=== PATIENT | male | born 1940 | race Hispanic/Latino ===

== ENCOUNTER 2016-05-24 09:07 | Emergency (ER) | payer OTHER ==
[~2016-05-24] VITALS: Ht 167.6 cm; Wt 72.6 kg
[~2016-05-24 09:07] MED LIST: MEDROL DOSEPAK1 PAC PO
--- NOTE | 2016-05-24 09:20 | ED SYNCOPE COMPLAINT ---
History of Present Illness General Chief Complaint: Syncope and Near-Syncope Stated Complaint: BIBA NEAR SYNCOPE Source: patient Exam Limitations: no limitations Vital Signs & Intake/Output Vital Signs & Intake/Output Vital Signs Date Time Temp Pulse Resp B/P Pulse O2 O2 Flow FiO2 Ox Delivery Rate 05/24 1321 97.2 64 18 132/70 98 Room Air 05/24 1135 98.2 68 18 149/75 99 Room Air 05/24 0917 71 144/74 05/24 0916 99 Room Air 05/24 0912 96.5 66 18 147/87 99 Room Air Allergies Coded Allergies: NO KNOWN ALLERGIES (05/24/16) Reconcile Medications Amlodipine (Norvasc) 2.5 MG TABLET 1 TAB PO DAILY HEART (Reported) Atorvastatin Calcium 10 MG TABLET 1 TAB PO DAILY CHOLESTEROL (Reported) Finasteride 5 MG TABLET 1 TAB PO DAILY PROSTATE (Reported) Ubidecarenone (Co Q-10) 100 MG CAPSULE 1 CAP PO DAILY SUPPLEMENT (Reported) Triage Note: 76 Y/O MALE BIBA FROM HOME FOR EVAL S/P NEAR SYNCOPLE EPISODE. PT ARRIVES ALERT AND ORIENTED X 4, SPEAKING CLEARLY WITH NO DISTRESS OR DEFICITS. PT STATES HE WAS IN BED AND BEGAN TO HAVE PAIN BEHIND L KNEE; GOT OUT OF BED AND BEGAN TO FEEL "DIZZY AND LIGHT HEADED. I GOT REALLY SWEATY". STATES SYMPTOMS LASTED APPROX 15 MIN. DENIES C/P. DENIES SOB DURING INCIDENT. AT PRESENT, PT STATES "I FEEL BETTER. IT SEEMS NORMAL". ONLY C/O PAIN BEHIND L KNEE. EKG IN PROGRESS PA AT THE BEDSIDE Triage Nurses Notes Reviewed? yes HPI: This patient is a 76-year-old male who presented to the emergency department today brought in by ambulance for evaluation of near syncope just prior to arrival. The patient reported that he was laying in bed when he started to feel dizzy and started sweating. He reported he felt as though he was going to pass out. The patient reported that when he tried to stand up to get out of bed, he felt pain in his left leg which she is unable to describe. He reported, "it doesn't feel like a joint it just feels like, I don't know." He is unable to quantify the pain on the pain scale. He denied any falls or trauma to the area. He reported that the pain has been constant since its onset and is nonradiating localized to the calf and back of the knee. The patient denied any swelling or redness of his leg. He denied any numbness or tingling in his leg. The patient denied any precipitating factors such as nausea. He denied any vomiting, abdominal pain, chest pain, difficulty breathing, visual changes, headaches, back pain, or any other associated symptoms. (ANNA STRICKLAND PA-C) Past History Travel History Traveled to [place] past 21 day No Medical History Any Pertinent Medical History? see below for history Neurological: NONE EENT: NONE Cardiovascular: hypertension, hyperlipidemia Respiratory: NONE Gastrointestinal: NONE Hepatic: NONE Renal: NONE Musculoskeletal: NONE Psychiatric: NONE Endocrine: NONE Blood Disorders: NONE Cancer(s): NONE SALES PROFESSIONAL/Reproductive: NONE Surgical History Surgical History: non-contributory Psychosocial History Who do you live with Spouse Services at Home None What is your primary language Sami Tobacco Use: Quit >30 days ago Family History Hx Contributory? No (ANNA STRICKLAND PA-C) Review of Systems Review of Systems Constitutional: Reports: see HPI. EENTM: Reports: no symptoms. Respiratory: Reports: no symptoms. Cardiovascular: Reports: no symptoms. GI: Reports: no symptoms. Genitourinary: Reports: no symptoms. Musculoskeletal: Reports: see HPI. Skin: Reports: no symptoms. Neurological/Psychological: Reports: see HPI. All Other Systems: Reviewed and Negative (ANNA STRICKLAND PA-C) Physical Exam Physical Exam Cranial Nerves: normal hearing, normal speech, PERRL Comments: Well-developed well-nourished person in no acute distress HEENT: Normal EENT exam, head normocephalic/atraumatic, moist mucous membranes PERRLA bilaterally. EOMI bilaterally with no nystagmus Neck: Supple full range of motion Back: Normal inspection Cardiovascular: Regular rate and rhythm with no murmurs, rubs or gallops. No carotid bruits appreciated. No JVD Respiratory: No respiratory distress. Breath sounds clear to auscultation bilaterally Abdomen: Soft, nontender and nondistended. No organomegaly appreciated. No rebound or guarding Extremity: No edema, no calf tenderness to palpation, normal and equal pulses. Full range of motion of all joint spaces. No signs of trauma. Neuro: Alert oriented x3, cranial nerves II through XII grossly intact. No aphasia. No facial droop. No unilateral weakness Skin: No appreciable rash on exposed skin, skin is warm and dry. Psych: Mood and affect is normal Core Measures ACS in differential dx? Yes CVA/TIA Diagnosis: No Severe Sepsis Present: No Septic Shock Present: No (MARCO A VALDES,ANNA) Progress Differential Diagnosis: AMI, aortic dissection, aortic valve, drug induced syncope, hyperventilation, orthostatic syncope, other valvular disease, pericardial tamponade, pulmonary embolus, seizure, sick sinus syndrome, subarachnoid hem., TIA/CVA, vasodepressor syncope Plan of Care: Orders Procedure Date/time Status D-DIMER 05/24 919 Complete MISTAKE 05/24 913 Active TROPONIN LEVEL 05/24 913 Complete COMPREHENSIVE METABOLIC PANEL 05/24 913 Complete CBC WITHOUT DIFFERENTIAL 05/24 913 Complete EKG 05/24 908 Active Laboratory Tests 05/24/16930: Anion Gap 7, Estimated GFR > 60, BUN/Creatinine Ratio 18.0, Glucose 101 H, Calcium 9.2, Total Bilirubin 0.8, AST 28, ALT 40, Alkaline Phosphatase 82, Troponin I < 0.01, Total Protein 6.8, Albumin 3.9, Globulin 2.9, Albumin/ Globulin Ratio 1.3, D-Dimer 546 H, CBC w Diff NO MAN DIFF REQ, RBC 4.47 L, MCV 90.7, MCH 30.2, RDW 14.3, MPV 8.0, Gran % 58.5, Lymphocytes % 29.1, Monocytes % 8.4, Eosinophils % 3.3, Basophils % 0.7, Absolute Granulocytes 4.2, Absolute Lymphocytes 2.1, Absolute Monocytes 0.6, Absolute Eosinophils 0.2, Absolute Basophils 0.1, PUBS MCHC 33.3 Diagnostic Imaging: Viewed by Me: CT Scan, Ultrasound. Discussed w/RAD: CT Scan, Ultrasound. Radiology Impression: PATIENT: DEEPAK DUMONT PRESENT AGE: 76 PATIENT ACCOUNT NO: [id number] : 41 LOCATION: [facility] ORDERING PHYSICIAN: ANNA STRICKLAND PA-C SERVICE DATE: 05/24/16 EXAM TYPE: US - US-UNILATERAL VENOUS DOPPLER EXAMINATION: US TRIPLEX LOWER EXTREMITY, LEFT CLINICAL INFORMATION: Left leg pain. COMPARISON: None available TECHNIQUE: Color-flow triplex imaging with spectral analysis and compression Doppler were performed on the left lower extremity. FINDINGS: Respiratory variation, normal compression and augmented flow are noted throughout the lower extremity. The visualized common femoral vein, superficial femoral vein, profunda femoral vein, popliteal vein and mid calf peroneal and posterior tibial venous segments show no evidence of deep venous thrombosis. Right common femoral vein is also patent. There is no Tapia's cyst. IMPRESSION: Normal triplex scan without evidence of deep venous thrombosis involving the left lower extremity. DICTATED BY: NANCY BALLESTEROS MD DATE/TIME DICTATED:05/24/16953 WASTEWATER ANALYST LAB ANALYST:KAHN DATE/ TIME TRANSCRIBED:05/24/16953 CONFIDENTIAL, DO NOT COPY WITHOUT APPROPRIATE AUTHORIZATION. <Electronically signed in Other Vendor System> SIGNED BY: NANCY BALLESTEROS MD 05/24/16 1000, PATIENT: DEEPAK DUMONT PRESENT AGE: 76 PATIENT ACCOUNT NO: [id number] : 41 LOCATION: ER ORDERING PHYSICIAN: ANNA STRICKLAND PA-C SERVICE DATE: 05/24/16 EXAM TYPE: CAT - CT HEAD WO IV CONTRAST EXAMINATION: CT HEAD WITHOUT CONTRAST CLINICAL INFORMATION: Dizziness and confusion. COMPARISON: None. TECHNIQUE: Contiguous axial imaging was performed from the skull base to vertex without intravenous administration of contrast. DLP: Eccentric mGy-cm. FINDINGS: There is no evidence of acute intracranial hemorrhage or territorial infarction. No abnormal mass effect or midline shift is seen. Dorsey to white matter differentiation is well preserved. No extra-axial fluid collections are identified. The ventricles are normal in size. There is no abnormal attenuation within the brain parenchyma. The osseous structures and soft tissues are normal. The mastoid air cells and visualized portions of the paranasal sinuses are well aerated. IMPRESSION: No acute intracranial process seen. DICTATED BY: LETICIA GARCIA MD DATE/TIME DICTATED:05/24/161235 WASTEWATER ANALYST LAB ANALYST:RAD.KAHN DATE/TIME TRANSCRIBED:05/24/161235 CONFIDENTIAL, DO NOT COPY WITHOUT APPROPRIATE AUTHORIZATION. <Electronically signed in Other Vendor System> SIGNED BY: LETICIA GARCIA MD 05/24/16 1241, PATIENT: DEEPAK DUMONT PRESENT AGE: 76 PATIENT ACCOUNT NO: [id number] : 41 LOCATION: ER ORDERING PHYSICIAN: ANNA STRICKLAND PA-C SERVICE DATE: 05/24/16 EXAM TYPE: CAT - CTA CHEST-PULMONARY EMBOLISM EXAMINATION: CT ANGIOGRAM OF THE CHEST WITH AND WITHOUT CONTRAST (CT PULMONARY ANGIOGRAM FOR PE) CLINICAL INFORMATION: Dizziness with near syncope. COMPARISON: No pertinent prior studies are available for comparison. TECHNIQUE: Prior to contrast administration, noncontrast localization images were obtained. Subsequently, multidetector volumetric imaging was performed from the thoracic inlet to below the diaphragms following the administration of 95 mL Optiray 350 intravenous contrast. No contrast reaction reported Sagittal, coronal, and MIP oblique sagittal reformatted images were obtained on the CT workstation, uploaded to PACS, and reviewed. Total exam dose-length product 379 mGy-cm FINDINGS: QUALITY OF STUDY/ CONTRAST BOLUS: Satisfactory. PULMONARY ARTERIES: Pulmonary arteries are well opacified without evidence of filling defects to suggest pulmonary emboli. . THORACIC AORTA: No aneurysm or dissection. LUNG: There are a few scattered calcified under 10 mm nodules consistent with granulomas bilaterally. No suspicious appearing pulmonary nodules are seen. The lungs are clear. No is widely patent. PLEURA: No pleural effusion or pneumothorax. MEDIASTINUM: Normal heart size. Mild to moderate coronary atherosclerotic calcification is seen. No pericardial effusion. No hilar or mediastinal lymphadenopathy. No evidence of septal bowing or right heart strain. Esophagus is air-filled suggesting aerophagia or reflux. CHEST WALL/AXILLA: No axillary or internal mammary lymphadenopathy. OSSEOUS STRUCTURES: No aggressive appearing osseous lesions are seen. UPPER ABDOMEN: Wedge-shaped defect midpole left kidney suggesting scarring. This could also represent postsurgical change. There are scattered colonic diverticula in the transverse colon. No reflux of contrast into the hepatic veins to suggest elevated right heart pressures. IMPRESSION: No evidence of pulmonary emboli or an acute process. Largely unremarkable examination. DICTATED BY: NANCY BALLESTEROS MD DATE/TIME DICTATED:05/24/161258 WASTEWATER ANALYST LAB ANALYST:ZAY DATE/TIME TRANSCRIBED:05/24/161258 CONFIDENTIAL, DO NOT COPY WITHOUT APPROPRIATE AUTHORIZATION. <Electronically signed in Other Vendor System> SIGNED BY: NANCY BALLESTEROS MD 05/24/16 5426 Initial ED EKG: normal axis, normal intervals, 54 bpm, sinus bradycardia, left ventricular hypertrophy Comments: 05/24/2016 10:24:31 AM: I was at the patient's bedside for reevaluation. He is currently resting comfortably on the stretcher in no acute distress. Nontoxic appearing. Updated him and his who is currently at the bedside on the results of the imaging and laboratory studies. This patient does have an elevated d-dimer. Suggest getting a CTA of the chest to rule out any blood clots. They're in agreement with this plan. The patient's also reported that when this episode began this morning, he came down into the kitchen and was , "incoherent." She reported that he was very confused and did not know where he was. Will obtain a CT of the head at this time. 05/24/2016 1:18:48 PM: Discussed this patient with Dr. Puentes. CTA of the chest unremarkable. No evidence of CVA with head CT. Patient is feeling normal and better than this morning. No increase in white blood cell count. M.D. in agreement with the plan to let this patient be discharged with neurology follow- up. Discussed all results with the patient and his were in agreement with the plan. (ANNA STRICKLAND PA-C) Departure Departure Disposition: HOME OR SELF CARE Condition: Stable Clinical Impression Primary Impression: Pre-syncope Referrals: JEWELS BANEGAS,VALERY ARTEAGA MD,JONO Teague (PCP/Family) Additional Instructions: Please continue to take all previously prescribed medications as directed. Follow-up with the neurologist was information has been provided to you in this packet. Return to the emergency department for any worsening symptoms or concerns. Departure Forms: Customer Survey General Discharge Information (ANNA STRICKLAND PA-C) PA/BUSINESS QUALITY ASSURANCE ANALYST Co-Sign Statement Statement: ED Attending supervision documentation- x I saw and evaluated the patient. I have also reviewed all the pertinent lab results and diagnostic results. I agree with the findings and the plan of care as documented in the PA's/BUSINESS QUALITY ASSURANCE ANALYST's documentation. [] I have reviewed the ED Record and agree with the PA's/BUSINESS QUALITY ASSURANCE ANALYST's documentation. [] Additions or exceptions (if any) to the PAs/BUSINESS QUALITY ASSURANCE ANALYST's note and plan are summarized below: [] (MERRICK BANEGAS,GABY)
[2016-05-24 09:40] LABS: ABSOLUTE BASOPHIL COUNT 0.1 /CUMM (0.0-0.2); ABSOLUTE EOSINOPHIL COUNT 0.2 /CUMM (0.0-0.7); ABSOLUTE GRANULOCYTE CT 4.2 /CUMM (1.4-6.5); ABSOLUTE LYMPH COUNT 2.1 /CUMM (1.2-3.4); ABSOLUTE MONOCYTE COUNT 0.6 /CUMM (0.10-0.60); BASOPHIL % 0.7 % (0.0-2.0); EOSINOPHIL % 3.3 % (0-5); GRANULOCYTE % 58.5 % (42.2-75.2); HEMATOCRIT 40.5 % (42-52); MEAN CORPUSCULAR HGB 30.2 PG (27.0-31.0); MEAN CORPUSCULAR HGB CONC 33.3 G/DL (33.0-37.0); MEAN CORPUSCULAR VOLUME 90.7 FL (80.0-94.0); PLATELET COUNT 214 /CUMM (130-400); RBC DISTRIBUTION WIDTH 14.3 % (11.5-14.5); RED BLOOD CELL CT 4.47 /CUMM (4.70-6.10); WHITE BLOOD CELL COUNT 7.1 /CUMM (4.8-10.8)
[2016-05-24] MEDS ORDERED: NORVASC2.5 M1 PO (10:00)
--- NOTE | 2016-05-24 10:00 | ULTRASOUND REPORT ---
EXAMINATION: US TRIPLEX LOWER EXTREMITY, LEFT CLINICAL INFORMATION: Left leg pain. COMPARISON: None available TECHNIQUE: Color-flow triplex imaging with spectral analysis and compression Doppler were performed on the left lower extremity. FINDINGS: Respiratory variation, normal compression and augmented flow are noted throughout the lower extremity. The visualized common femoral vein, superficial femoral vein, profunda femoral vein, popliteal vein and mid calf peroneal and posterior tibial venous segments show no evidence of deep venous thrombosis. Right common femoral vein is also patent. There is no Tapia's cyst. IMPRESSION: Normal triplex scan without evidence of deep venous thrombosis involving the left lower extremity.
[2016-05-24] MEDS ORDERED: ATORVASTATIN CA10 M1 PO (10:01)
[2016-05-24] MEDS ORDERED: FINASTERIDE5 M1 PO (10:01)
[2016-05-24] MEDS ORDERED: CO Q-10100 MG PO (10:01)
--- NOTE | 2016-05-24 12:41 | CT SCAN REPORT ---
EXAMINATION: CT HEAD WITHOUT CONTRAST CLINICAL INFORMATION: Dizziness and confusion. COMPARISON: None. TECHNIQUE: Contiguous axial imaging was performed from the skull base to vertex without intravenous administration of contrast. DLP: Eccentric mGy-cm. FINDINGS: There is no evidence of acute intracranial hemorrhage or territorial infarction. No abnormal mass effect or midline shift is seen. Dorsey to white matter differentiation is well preserved. No extra-axial fluid collections are identified. The ventricles are normal in size. There is no abnormal attenuation within the brain parenchyma. The osseous structures and soft tissues are normal. The mastoid air cells and visualized portions of the paranasal sinuses are well aerated. IMPRESSION: No acute intracranial process seen.
--- NOTE | 2016-05-24 13:09 | CT SCAN REPORT ---
EXAMINATION: CT ANGIOGRAM OF THE CHEST WITH AND WITHOUT CONTRAST (CT PULMONARY ANGIOGRAM FOR PE) CLINICAL INFORMATION: Dizziness with near syncope. COMPARISON: No pertinent prior studies are available for comparison. TECHNIQUE: Prior to contrast administration, noncontrast localization images were obtained. Subsequently, multidetector volumetric imaging was performed from the thoracic inlet to below the diaphragms following the administration of 95 mL Optiray 350 intravenous contrast. No contrast reaction reported Sagittal, coronal, and MIP oblique sagittal reformatted images were obtained on the CT workstation, uploaded to PACS, and reviewed. Total exam dose-length product 379 mGy-cm FINDINGS: QUALITY OF STUDY/CONTRAST BOLUS: Satisfactory. PULMONARY ARTERIES: Pulmonary arteries are well opacified without evidence of filling defects to suggest pulmonary emboli. . THORACIC AORTA: No aneurysm or dissection. LUNG: There are a few scattered calcified under 10 mm nodules consistent with granulomas bilaterally. No suspicious appearing pulmonary nodules are seen. The lungs are clear. No is widely patent. PLEURA: No pleural effusion or pneumothorax. MEDIASTINUM: Normal heart size. Mild to moderate coronary atherosclerotic calcification is seen. No pericardial effusion. No hilar or mediastinal lymphadenopathy. No evidence of septal bowing or right heart strain. Esophagus is air-filled suggesting aerophagia or reflux. CHEST WALL/AXILLA: No axillary or internal mammary lymphadenopathy. OSSEOUS STRUCTURES: No aggressive appearing osseous lesions are seen. UPPER ABDOMEN: Wedge-shaped defect midpole left kidney suggesting scarring. This could also represent postsurgical change. There are scattered colonic diverticula in the transverse colon. No reflux of contrast into the hepatic veins to suggest elevated right heart pressures. IMPRESSION: No evidence of pulmonary emboli or an acute process. Largely unremarkable examination.
[2016-05-24 13:21] VITALS: BP 132/70
== END 2016-05-24 13:22 ==
LOC: ERH 09:07
PROVIDERS: Physician Assistant
DX: R55 Syncope and collapse (principal); M79.605 Pain in left leg; I10 Essential (primary) hypertension
CPT/HCPCS: 93005; 93010

== ENCOUNTER 2017-12-02 09:43 | Inpatient (IN) | payer OTHER ==
[~2017-12-02] VITALS: Ht 170.2 cm; Wt 66.7 kg
[~2017-12-02 09:43] MED LIST changes: +ATORVASTATIN CA10 M1 PO; +CO Q-10100 MG PO; +FINASTERIDE5 M1 PO; +NORVASC5 M1 PO
--- NOTE | 2017-12-02 10:01 | ED GENERAL ADULT ---
History of Present Illness General Chief Complaint: Syncope and Near-Syncope Stated Complaint: BIBA SYNCOPE Source: patient, EMS Exam Limitations: no limitations Vital Signs & Intake/Output Vital Signs & Intake/Output Vital Signs Date Time Temp Pulse Resp B/P B/P Pulse O2 O2 Flow FiO2 Mean Ox Delivery Rate 12/02 0953 99 Room Air 12/02 0952 97.8 57 18 116/62 98 Room Air Allergies Coded Allergies: NO KNOWN ALLERGIES (05/24/16) Reconcile Medications Amlodipine (Norvasc) 2.5 MG TABLET 1 TAB PO DAILY HEART (Reported) Atorvastatin Calcium 10 MG TABLET 1 TAB PO DAILY CHOLESTEROL (Reported) Finasteride 5 MG TABLET 1 TAB PO DAILY PROSTATE (Reported) Ubidecarenone (Co Q-10) 100 MG CAPSULE 1 CAP PO DAILY SUPPLEMENT (Reported) Triage Note: PT BIBA FROM HOME WITH SYNCOPE x2 THIS AM. EMS AND PATIENT REPORT THAT PT WAS MAKING COFFEE THIS AM WHEN HE PASSED OUT AND WAS UNBRESPONSIVE FOR APPROX 3-4 MINUTES. PT DENIES PAIN, BUT REPORTS THAT PT STRUCK BACK OF HEAD WHEN HE FELL TO THE GROUND. PT WAS BEING ESCORTED TO THE LIVING ROOM, PT WAS SYNCOPAL AGAIN, FOR APPROXIMATELY THE SAME DURATION. ON ARRIVAL, PT IS A&O, VSS. DENIES CP, SOB, OR OTHER NEGATIVE SX. #20 PLACED IN LAC B[employer] PACKER Triage Nurses Notes Reviewed? yes HPI: 77-year-old male brought by EMS for syncope. The patient was making coffee when he passed out and hit his head. According to his he was passed out for about 2 minutes. The patient reports no complaints given denies a headache. Denies being dizzy or lightheaded at this time. EMS brought EKGs with the date, the first 1 showed atrial flutter, the patient denies any history of it. The next one shows the patient being in bigeminy with PACs. The patient currently has no symptoms and telemetry is showing normal sinus rhythm. Patient denies taking blood thinners, any history of atrial flutter or atrial fibrillation. He denies any cardiac history or cardiac workup. Past History Medical History Any Pertinent Medical History? none Neurological: NONE EENT: NONE Cardiovascular: hypertension, hyperlipidemia Respiratory: NONE Gastrointestinal: NONE Hepatic: NONE Renal: NONE Musculoskeletal: NONE Psychiatric: NONE Endocrine: NONE Blood Disorders: NONE Cancer(s): NONE WELDER/INSTALLER/Reproductive: NONE Surgical History Surgical History: non-contributory Psychosocial History Who do you live with Spouse Services at Home None What is your primary language Cymro Family History Hx Contributory? No Review of Systems Review of Systems Constitutional: Denies: chills, diaphoresis, fever. EENTM: Denies: blurred vision, double vision, visual changes. Respiratory: Denies: see HPI, cough, hemoptysis. Cardiovascular: Denies: chest pain, edema, orthopena. GI: Denies: abdominal pain, bloating, constipation. Genitourinary: Denies: discharge, dysuria, frequency. Musculoskeletal: Denies: back pain, gout, joint pain. Skin: Denies: cysts, change in skin color, change in hair/nails. Neurological/Psychological: Denies: anxiety, ataxia, cognitive dysfunction. Physical Exam Physical Exam General Appearance: well developed/nourished, no apparent distress, alert, awake Head: atraumatic, normal appearance, active bleeding, evidence of injury Eyes: Bilateral: PERRL, EOMI, pale conjunctivae. Ears, Nose, Throat: normal pharynx, normal ENT inspection Neck: normal inspection, supple Respiratory: normal breath sounds, chest non-tender, no respiratory distress Cardiovascular: regular rate/rhythm, edema, gallop Gastrointestinal: normal bowel sounds, soft, non-tender Back: normal inspection, normal range of motion Neurologic/Psych: no motor/sensory deficits, awake, alert, oriented x 3 Skin: intact, normal color, warm/dry Comments: History of head, without any obvious external signs of trauma. Core Measures ACS in differential dx? Yes CVA/TIA Diagnosis: No Sepsis Present: No Sepsis Focused Exam Completed? No Progress Differential Diagnoses Syncope with EKG changes with dysrhythmia which is new for the patient. The patient will need observation or admission to the hospital. No apparent distress. Stable vital signs at this time. Plan of Care: Orders Procedure Date/time Status Heart Healthy Diet 12/02 D Active ED Holding Orders 12/02 1117 Active Admit to inpatient 12/02 1117 Active Code Status 12/02 1117 Active Saline Lock 12/02 1002 Active TROPONIN LEVEL 12/02 1002 Complete PROTHROMBIN TIME 12/02 1002 Complete MAGNESIUM 12/02 1002 Complete CBC WITHOUT DIFFERENTIAL 12/02 1002 Complete BASIC METABOLIC PANEL 12/02 1002 Complete EKG 12/02 0947 Active Laboratory Tests 12/02/17 1010: Anion Gap 9, Estimated GFR > 60, BUN/Creatinine Ratio 18.9, Glucose 88, Calcium 8.5, Magnesium 1.8, Troponin I < 0.01, PT 10.4, INR 0.95, CBC w Diff NO MAN DIFF REQ, RBC 4.07 L, MCV 90.6, MCH 30.3, MCHC 33.5, RDW 13.9, MPV 8.0, Gran % 47.5, Lymphocytes % 36.0, Monocytes % 8.7, Eosinophils % 7.0 H, Basophils % 0.8, Absolute Granulocytes 3.0, Absolute Lymphocytes 2.3, Absolute Monocytes 0.5, Absolute Eosinophils 0.4, Absolute Basophils 0 Initial ED EKG: see below Comments: EKG: Sinus, rate of 61. Normal axis. Normal intervals. No acute ST-T changes. Compared to the EKG from May 24, 2016: No significant change. 1116 imaging negative. Troponin negative. Patient doing well at this time. He will need admission for EKG changes with syncope and new onset atrial flutter demonstrated by the EMS EKG. Departure Departure Time of Disposition: 1115 Disposition: STILL A PATIENT Condition: Stable Clinical Impression Primary Impression: Syncope Secondary Impressions: Atrial flutter Referrals: Sera BANEGAS,Kishor Elam (PCP/Family) Departure Forms: Customer Survey General Discharge Information Admission Note Spoke With: Angy BANEGAS,Amicharlie Documentation of Exam: Documentation of any treatments & extenuating circumstances including Concerns Regarding Discharge (functional status, medication knowledge or non-compliance, living conditions, etc.) that warrant an admission rather than observation: EKG changes, new onset atrial flutter with documented syncope. Will need cardiology consult possible anti-correlation. Critical Care Note Critical Care Note Critical Care Time: non-applicable
[2017-12-02 10:28] LABS: ABSOLUTE BASOPHIL COUNT 0 /CUMM (0.0-0.2); ABSOLUTE EOSINOPHIL COUNT 0.4 /CUMM (0.0-0.7); ABSOLUTE LYMPH COUNT 2.3 /CUMM (1.2-3.4); ABSOLUTE MONOCYTE COUNT 0.5 /CUMM (0.10-0.60); BASOPHIL % 0.8 % (0.0-2.0); GRANULOCYTE % 47.5 % (42.2-75.2); HEMATOCRIT 36.8 % (42-52); MEAN CORPUSCULAR HGB 30.3 PG (27.0-31.0); MEAN CORPUSCULAR HGB CONC 33.5 G/DL (33.0-37.0); MEAN CORPUSCULAR VOLUME 90.6 FL (80.0-94.0); PLATELET COUNT 220 /CUMM (130-400); RBC DISTRIBUTION WIDTH 13.9 % (11.5-14.5); RED BLOOD CELL CT 4.07 /CUMM (4.70-6.10); WHITE BLOOD CELL COUNT 6.3 /CUMM (4.8-10.8)
--- NOTE | 2017-12-02 11:08 | CT SCAN REPORT ---
EXAMINATION: CT HEAD WITHOUT CONTRAST CLINICAL INFORMATION: Head injury, syncope COMPARISON: 05/24/2016 TECHNIQUE: Contiguous axial imaging was performed from the skull base to vertex without intravenous administration of contrast. DLP: 648 mGy-cm FINDINGS: There is no evidence of acute intracranial hemorrhage or territorial infarction. No abnormal mass effect or midline shift is seen. Dorsey to white matter differentiation is well preserved. No extra-axial fluid collections are identified. The ventricles are similar in configuration to the prior study. No ventriculomegaly. Again seen is mild age-appropriate periventricular and subcortical white matter hypodensity, consistent with age-appropriate chronic microvascular white matter ischemic changes. No skull fracture. Postoperative changes of both globes. Partial opacification of the ethmoid sinuses bilaterally. Partial opacification of the right frontal sinus. Bilateral maxillary sinus mucous retention cysts or polyps. Mastoid air cells are clear. IMPRESSION: No acute intracranial pathology. Worsened sinus disease.
[2017-12-02 11:28] LABS: PT 10.4 SEC (9.4-12.5)
[2017-12-02] MEDS ORDERED: HYDROCHLOROTHIA25 M1 PO (12:29)
[2017-12-02] MEDS ORDERED: VITAMIN D31000 UNI1 PO (12:30)
--- NOTE | 2017-12-02 12:33 | History & Physical ---
David BANEGAS,[place]laale 12/02/17 1230: General Information and HPI MD Statement: I have seen and personally examined DEEPAK DUMONT and documented this H&P. The patient is a 77 year old M who presented with a patient stated chief complaint of [SYNCOPE]. Source of Information: patient, family, old records Exam Limitations: no limitations History of Present Illness: This is a 77 yo male with PMH of HTN, HLD, tubular adenoma on colonoscopy who comes in for CC of witnessed syncope x2. He was making coffee this AM when he "passed out" for about 3-4 min. This was witnessed by his . She noted that he hit his head when he went down. Then he was escorted to the living room and had another similar episode of syncope for the same duration but without head strike. Patient does not remember either syncopal event very well. He remembers feeling dizzy for a moment before he fell; denies any palpitations, diaphoresis, loss of bladder or bowel control, or uncontrolled limb movements. He remembers being significantly diaphoretic AFTER the syncopal event. He does report a previous episode of syncope last year with similar presentation; he was seen in ED, no etiology found at that time. He denies any CP, SANTA,N,V,D,SOB, orthopnea, palpitations, change in bladder or bowel movement, hematuria, hematochezia or recent illnesses. His anti- hypertensive regimen is HCTZ and Amlodipine, dose and medications have not been changed recently. EKG by EMS seems to show a single episode of aflutter and one with bigemini. Pt has no hx of cardiac arrhythmia. FAM HX: Mom with stomach ca. Brother seemed to report similar episode of syncope but he says it was because of his hypertensive medication. Brother has one stent placed. No fam hx SCD. SOC HX: He quit smoking 25 yrs ago, and still uses etoh recreationally 3-4 days a week. One serving of scotch. NO IVDA. Surg Hx: Open appy as a child and abd surgery Allergies/Medications Allergies: Coded Allergies: NO KNOWN ALLERGIES (05/24/16) Home Med list Amlodipine Besylate (Norvasc) 5 MG TABLET 1 TAB PO DAILY HTN (Reported) Atorvastatin Calcium 10 MG TABLET 1 TAB PO DAILY CHOLESTEROL (Reported) Cholecalciferol (Vitamin D3) (Vitamin D3) 1,000 UNIT CAPSULE 1 CAP PO DAILY SUPPLEMENT (Reported) Finasteride 5 MG TABLET 1 TAB PO DAILY PROSTATE (Reported) Hydrochlorothiazide 25 MG TABLET 1 TAB PO DAILY BP (Reported) Ubidecarenone (Co Q-10) (Unknown Strength) CAPSULE (Unknown Dose) PO DAILY SUPPLEMENT (Reported) Compliance With Home Meds: GOOD Past History Travel History Traveled to [place] past 21 day No Medical History Neurological: NONE EENT: NONE Cardiovascular: hypertension, hyperlipidemia Respiratory: NONE Gastrointestinal: NONE Hepatic: NONE Renal: NONE Musculoskeletal: NONE Psychiatric: NONE Endocrine: NONE Blood Disorders: NONE Cancer(s): NONE AIR CONDITIONING UNIT TESTER/Reproductive: NONE Surgical History Surgical History: non-contributory Past Family/Social History Psychosocial History Services at Home: None ETOH Use: occasional use Review of Systems Review of Systems Constitutional: Reports: see HPI. Exam & Diagnostic Data Last 24 Hrs of Vital Signs/I&O Vital Signs Date Time Temp Pulse Resp B/P B/P Pulse O2 O2 Flow FiO2 Mean Ox Delivery Rate 12/02 0953 99 Room Air 12/02 0952 97.8 57 18 116/62 98 Room Air Intake & Output 12/02 1600 12/02 0800 12/02 0000 Intake Total Output Total Balance Patient 69.853 kg Weight Weight Reported by Patient Measurement Method Physical Exam General Appearance Alert, Oriented X3, Cooperative, No Acute Distress Skin No Significant Lesion HEENT Atraumatic, PERRLA, EOMI, Mucous Membr. moist/pink Neck Supple Cardiovascular Regular Rate, Normal S1, Normal S2, No Murmurs Lungs Clear to Auscultation, Normal Air Movement Abdomen Soft, No Tenderness Extremities No Edema Last 24 Hrs of Labs/Freddie: Laboratory Tests 12/02/17 1010: Anion Gap 9, Estimated GFR > 60, BUN/Creatinine Ratio 18.9, Glucose 88, Calcium 8.5, Magnesium 1.8, Troponin I < 0.01, PT 10.4, INR 0.95, CBC w Diff NO MAN DIFF REQ, RBC 4.07 L, MCV 90.6, MCH 30.3, MCHC 33.5, RDW 13.9, MPV 8.0, Gran % 47.5, Lymphocytes % 36.0, Monocytes % 8.7, Eosinophils % 7.0 H, Basophils % 0.8, Absolute Granulocytes 3.0, Absolute Lymphocytes 2.3, Absolute Monocytes 0.5, Absolute Eosinophils 0.4, Absolute Basophils 0 Assessment/Plan Assessment: ASSESSMENT:This is a 77 yo male with PMH of HTN and HLD who comes in for CC Syncope x 2. His only prodrome was some dizziness and he cannot recall much about the events. EMS EKG shows a.flutter and some bigemini; subsequent ED EKG shows NSR with some slight T-wave depression in lateral leads. Pt has no known history of conduction abnormalities but given EKG findings there is concern that his syncope is due to arrhythmia. Will admit to telemetry for further workup and monitoring. PLAN: 1. Syncope: Highest on the differential of syncope for this pt is cardiac syncope given abnormal EKG. There was no event and pt does not describe any symptoms to suggest neurogenic. Will check for orthostats. * EKG and trops x2 * Cardio consult * Continuous cardiac monitoring * holding anti-hypertensives at this time (HCTZ and Amlodipine). * Echo * orthostats * ?? Role of Anticoagulation in this patient. 2. Hyperlipidemia: * Con't statin 3. BPH: * Con't Finasteride FC Chem ppx HHD After initial admission pt was placed on surveillance monitor and he was in a.flutter but relatively asymptomatic and rate controlled. His [id number] score was 3 so we decided to start pt on Heparin drip. As Ranked By This Provider Problem List: 1. Syncope Core Measures/Misc (01/21) Acute Coronary Syndrome ACS Diagnosis: No Congestive Heart Failure Congestive Heart Failure Diagnosis No Cerebrovascular Accident CVA/TIA Diagnosis: No VTE (View Protocol) VTE Risk Factors Acute Medical Illness No Mechanical VTE Prophylaxis d/t N/A MechProphylax Ordered No VTE Pharm Prophylaxis d/t NA PharmProphylax ordered Sepsis (View protocol) Sepsis Present: No If YES complete Sepsis Event Note If YES complete Sepsis Event Note Angy BANEGAS,Amir 12/02/17 1417: Core Measures/Misc (01/21) Sepsis (View protocol) If YES complete Sepsis Event Note If YES complete Sepsis Event Note Attending MD Review Statement Attending Statement Attending MD Statement: examined this patient, discuss w/resident/PA/REGULATORY COMPLIANCE OFFICER, agreed w/resident/PA/REGULATORY COMPLIANCE OFFICER, discussed with family, reviewed EMR data (avail), discussed with nursing Attending Assessment/Plan: Mr. Dumont was seen and evaluated. H&P reviewed. Pt currently asymptomatic without CP or syncope. Symptoms likely c/w --will admit to Tele, serial cardiac enzymes, 2D ECHO and Cards consult --rest of the plan as per resident's note
--- NOTE | 2017-12-02 17:07 | Admission Certification ---
Admission Certification Certification Statement - As attending physician, I certify that at the time of - admission, based on clinical presentation, severity of - symptoms, need for further diagnostic testing and - therapeutic interventions, and risk of adverse outcomes - without in-hospital treatment, in my clinical assessment, - this patient requires an acute hospital stay for a minimum - of two nights or longer. I have also considered psychsocial - factors such as support system, advanced age, financial - issues, cognitive issues, and failed out-patient treatments, - past re-admission history, safety of patient, and lack of - compliance as applicable. Specific rationale supporting this admission is: arrythmia
--- NOTE | 2017-12-02 20:46 | Event Note ---
Event Note Event Note: 77 yo male brought in for syncope. He was found to be in paroxysmal afib/a flutter/bigeminy. His CHADS VASC score is 3. I did the stool Hemoccult which came back negative. Plan is to start Heparin gtt tonight. For further anticoagulation, we will follow cardiology recommendations.
[2017-12-03 04:31] LABS: PTT 96 SEC (25-37)
[2017-12-03 06:26] LABS: ABSOLUTE BASOPHIL COUNT 0 /CUMM (0.0-0.2); ABSOLUTE EOSINOPHIL COUNT 0.4 /CUMM (0.0-0.7); ABSOLUTE GRANULOCYTE CT 6.1 /CUMM (1.4-6.5); ABSOLUTE MONOCYTE COUNT 0.6 /CUMM (0.10-0.60); BASOPHIL % 0.4 % (0.0-2.0); EOSINOPHIL % 3.9 % (0-5); GRANULOCYTE % 66.9 % (42.2-75.2); HEMATOCRIT 39.7 % (42-52); MEAN CORPUSCULAR HGB 30.7 PG (27.0-31.0); MEAN CORPUSCULAR HGB CONC 34.5 G/DL (33.0-37.0); MEAN CORPUSCULAR VOLUME 89.1 FL (80.0-94.0); MEAN PLATELET VOLUME 8.1 FL (7.4-10.4); PLATELET COUNT 239 /CUMM (130-400); RBC DISTRIBUTION WIDTH 14.1 % (11.5-14.5); RED BLOOD CELL CT 4.45 /CUMM (4.70-6.10); WHITE BLOOD CELL COUNT 9.2 /CUMM (4.8-10.8)
--- NOTE | 2017-12-03 07:22 | PN- Housestaff ---
Doreen Gallagher 12/03/17 0722: Subjective Follow-up For: Syncope, atrial fibrillation, atrial flutter, bigeminy, hypertension Complaints: no complaints Subjective: Patient seen and examined sitting comfortably in his chair in no acute distress. No complaints/no acute events overnight. Review of Systems Constitutional: Reports: see HPI. Objective Last 24 Hrs of Vital Signs/I&O Vital Signs Date Time Temp Pulse Resp B/P B/P Pulse O2 O2 Flow FiO2 Mean Ox Delivery Rate 12/03 1302 96.9 68 18 128/65 97 12/03 0928 70 118/50 12/03 0806 98.9 12/03 0604 70 18 141/61 100 Room Air 12/02 2112 98.6 84 18 148/68 99 Room Air 12/02 1825 97.8 96 16 142/68 98 Room Air 12/02 1541 97.8 84 16 115/60 98 Room Air Intake & Output 12/03 1600 12/03 0800 12/03 0000 Intake Total 176 340 Output Total Balance 176 340 Intake, IV 176 Intake, Oral 340 Physical Exam General Appearance: Alert, Oriented X3, Cooperative, No Acute Distress Skin: No Rashes, No Breakdown, No Significant Lesion HEENT: Atraumatic, Mucous Membr. moist/pink Neck: Supple Cardiovascular: Regular Rate, Normal S1, Normal S2, No Murmurs Lungs: Clear to Auscultation, Normal Air Movement Abdomen: Soft, No Tenderness, No Hepatospenomegaly Neurological: Normal Gait, Normal Speech, Strength at 5/5 X4 Ext, Normal Tone Extremities: No Clubbing, No Cyanosis, No Edema Assessment/Plan Assessment: Mr. Shields is a 77-year-old male with past medical history of hypertension, hyperlipidemia, no other cardiac history who presented to the ED for syncope 2. He reports a prodrome of dizziness but cannot recall the syncopal events. In the ambulance his EKG showed a flutter/bigeminy. In the emergency department EKG showed normal sinus rhythm and slight T-wave depressions in lateral leads. Vitals: Stable. Afebrile. Saturating well on room air Troponins: Less than 0.01--- less than 0.01--- less than 0.01 Problems: Assessment and plan: asymptomatic and stable clinically. He is in rate controlled ventricular response Diet: Heart healthy CODE STATUS: Full code DVT prophylaxis heparin Problem List: 1. Atrial flutter 2. Syncope 3. Bigeminy 4. Atrial flutter Pain Ratin Pain Location: None Pain Goal: Remain pain free Pain Plan: Follow pain pathway Tomorrow's Labs & Rationales: cbc. sunil Martínez MD,Dorita 12/03/17 1143: Attending MD Review Statement Attending Statement Attending MD Statement: examined this patient, discuss w/resident/PA/SYSTEM DEVELOPMENT MANAGER, agreed w/resident/PA/SYSTEM DEVELOPMENT MANAGER, reviewed EMR data (avail), discussed with nursing, discussed with case mgmt, amended to note Attending Assessment/Plan: Patient seen and examined. Resting comfortably not in any acute distress. Presented with syncope. He was noted to have atrial flutter by EMS EKG was normal sinus rhythm with ST depressions on presentation to the ER. He converted into atrial flutter in the emergency room. Apparently his rhythm has been varying between A. fib, a flutter and bigeminy. He is currently rate controlled ventricular response and not on any medications for rate control. He is resting comfortably. Denies chest pain or palpitations. No shortness of breath. He has ruled out for ACS with negative cardiac enzymes. Electrolytes are within normal limits. Laboratory data reviewed. TSH within normal limits last month. Problems: 1. Paroxysmal atrial fibrillation/flutter. 2. Syncope; likely secondary to above 3. Hypertension Plan: -Follow-up echocardiogram. Continue telemetry monitoring. -Awaiting cardiology evaluation. -Currently on anticoagulant with IV heparin. Follow-up with cardiology service regarding long-term anticoagulant. -
[2017-12-03 09:28] VITALS: BP 118/50
[2017-12-03 11:16] LABS: PTT 90 SEC (25-37)
--- NOTE | 2017-12-03 13:56 | Patient Discharge Instructions ---
Discharge Instructions General Discharge Information You were seen/treated for: Syncope, irregular heart rhythms: Atrial fibrillation/atrial flutter/bigeminy Watch for these problems: Please visit your nearest emergency department if you have any of these: Chest pain, shortness of breath, heart racing fast, heart having in irregular beat, fever, chills Special Instructions: Diet Recommended Diet: Heart Healthy Activity Activity Self Limited: Yes Acute Coronary Syndrome Inclusion Criteria At DC or during hospital stay patient has or had the following: ACS DIAGNOSIS No Discharge Core Measures Meds if any: Prescribed or Continued at Discharge Meds if any: NOT Prescribed or Continued at Discharge Congestive Heart Failure Inclusion Criteria At DC or during hospital stay patient has or had the following: CHF DIAGNOSIS No Discharge Core Measures Meds if any: Prescribed or Continued at Discharge Meds if any: NOT Prescribed or Continued at Discharge Cerebrovascular accident Inclusion Criteria At DC or during hospital stay patient has or had the following: CVA/TIA Diagnosis No Discharge Core Measures Meds if any: Prescribed or Continued at Discharge Meds if any: NOT Prescribed or Continued at Discharge Venous thromboembolism Inclusion Criteria VTE Diagnosis No VTE Type NONE VTE Confirmed by (Test) NONE Discharge Core Measures - Per Current guidelines, there needs to be overlap - treatment for the first 5 days of Warfarin therapy. - If discharged on Warfarin prior to 5 days of - overlap therapy, the patient will need to be - assessed for post discharge needs including - *Post discharge parental anticoagulation - *Warfarin and/or parental anticoagulation education - *Follow up date to check INR post discharge At least 5 days overlap therapy as Inpatient No Meds if any: Prescribed or Continued at Discharge Note: Overlap Therapy is Warfarin and Anticoagulant Meds if any: NOT Prescribed or Continued at Discharge
[2017-12-03 14:10] VITALS: BP 137/64
--- NOTE | 2017-12-03 15:35 | Cons- Cardiology ---
General Information and HPI Consulting Request Date of Consult: 12/03/17 Requested By: Dorita Martínez MD Reason for Consult: syncoe, atrial fibrillation Source of Information: patient, family Exam Limitations: no limitations History of Present Illness: 77-year-old male PMH hypertension, hyperlipidemia presented after witnessed syncope 2. Patient was making coffee in his kitchen when he experienced sudden loss of consciousness. This happened a second time several minutes later. Patient denies preceding chest pain, palpitations, dyspnea, lightheadedness/ dizziness. Patient was not confused afterwards, denies tongue biting, urinary/ bowel incontinence. Patient's witnessed the event and stated that he did not exhibit any shaking movements. This happened one time several years ago in the past. Patient denies exertional chest pain, dyspnea. Has an limited exercise tolerance, denies PND/orthopnea. Patient reports a negative exercise stress test several years ago. Allergies/Medications Allergies: Coded Allergies: NO KNOWN ALLERGIES (05/24/16) Home Med List: Amlodipine Besylate (Norvasc) 5 MG TABLET 1 TAB PO DAILY HTN (Reported) Atorvastatin Calcium 10 MG TABLET 1 TAB PO DAILY CHOLESTEROL (Reported) Cholecalciferol (Vitamin D3) (Vitamin D3) 1,000 UNIT CAPSULE 1 CAP PO DAILY SUPPLEMENT (Reported) Finasteride 5 MG TABLET 1 TAB PO DAILY PROSTATE (Reported) Hydrochlorothiazide 25 MG TABLET 1 TAB PO DAILY BP (Reported) Ubidecarenone (Co Q-10) (Unknown Strength) CAPSULE (Unknown Dose) PO DAILY SUPPLEMENT (Reported) Review of Systems Review of Systems: As per HPI; otherwise a 10 point review of systems is negative Past History Travel History Traveled to [place] past 21 day No Medical History Neurological: NONE EENT: NONE Cardiovascular: hypertension, hyperlipidemia Respiratory: NONE Gastrointestinal: NONE Hepatic: NONE Renal: NONE Musculoskeletal: NONE Psychiatric: NONE Endocrine: NONE Blood Disorders: NONE Cancer(s): NONE ROLLER PRINTER/Reproductive: NONE Surgical History Surgical History: non-contributory Psychosocial History Services at Home: None Smoking Status: Former Smoker ETOH Use: occasional use Exam & Diagnostic Data Vital Signs and I&O Vital Signs Date Time Temp Pulse Resp B/P B/P Pulse O2 O2 Flow FiO2 Mean Ox Delivery Rate 12/03 1410 98.3 61 61 137/64 93 Room Air 12/03 1302 96.9 68 18 128/65 97 07/30 0928 70 118/50 12/03 0806 98.9 12/03 0604 70 18 141/61 100 Room Air 12/02 2112 98.6 84 18 148/68 99 Room Air 12/02 1825 97.8 96 16 142/68 98 Room Air 12/02 1541 97.8 84 16 115/60 98 Room Air Intake & Output 12/03 1600 12/03 0800 12/03 0000 12/02 1600 12/02 0800 12/02 0000 Intake Total 729 507 0536 Output Total Balance 092 628 6244 Intake, IV 176 Intake, Oral 340 2660 Patient 69.853 kg 69.853 kg Weight Weight Reported by Patient Reported by Patient Measurement Method Physical Exam: General: no apparent distress HEENT: NCAT, NO JVD Heart: s1s2, RRR, no MRG Lungs: CTA b/l Abd: soft, nt Ext: no peripheral edema Diagnostic Data EKG Results Personally reviewed: 1 ECG shows typical atrial flutter with variable AV block 2 ECG shows coarse atrial fibrillation with RVR and spontaneous conversion to normal sinus rhythm 3 ECG shows normal sinus rhythm, no ST/T-wave abnormalities Telemetry personally reviewed, normal sinus rhythm Other Results Head CT: No acute intracranial pathology Assessment/Plan Assessment/Plan 1. Syncope 2. Atrial fibrillation/flutter 3. Hypertension, well controlled 4. Hyperlipidemia The patient's presentation is consistent with sudden loss of consciousness due to tachyarrhythmia, atrial fibrillation/flutter. [id number] is at least 3; full dose anticoagulation is therefore indicated. The patient is currently in sinus rhythm and asymptomatic. troponin was negative. Obtain 2D echo cardiogram Check TSH Continue telemetry Continue with heparin for now, as long as echo does not show mitral stenosis, patient can be discharged on DOAC such as eliquis After echo, patient can be started on diltiazem or metoprolol Continue with statin Consult Acknowledgment - Thank you for your consult request.
--- NOTE | 2017-12-03 22:10 | ECHOCARDIOGRAM REPORT ---
DEEPAK DUMONT Age: 77 : 1940 Gender: M Exam Date: 12/03/2017 19:17 Exam Location: 1 [facility] Ht (in): 66 Wt (lb): 154 BSA: 1.81 BP: 141 / 61 Ordering Physician: Malena Hernandez MD Referring Physician: Maikel Hernandez MD Technologist: Jojo Rolon [facility] Room Number: [id number] Indications: Afib/flutter Rhythm: Technical Quality: Fair FINDINGS Left Ventricle No obvious regional wall motion abnormalities. Left ventricular wall thickness mildly increased. Left ventricular cavity size normal. Left ventricular ejection fraction is estimated at > 55 %. Right Ventricle Normal right ventricular size and function. Right Atrium Normal right atrial size. Left Atrium Mild left atrial dilatation. Mitral Valve Moderate mitral annular calcification. Trace mitral regurgitation. Aortic Valve Thickened aortic valve without stenosis. Tricuspid Valve Structurally normal tricuspid valve. Mild tricuspid regurgitation. No evidence of pulmonary hypertension. Pulmonic Valve Pulmonic valve not well visualized, grossly normal. Pericardium No pericardial effusion. Great Vessels Normal size aortic root. CONCLUSIONS No obvious regional wall motion abnormalities. Left ventricular wall thickness mildly increased. Left ventricular cavity size normal. Left ventricular ejection fraction is estimated at > 55 %. Normal right ventricular size and function. Mild left atrial dilatation. Thickened aortic valve without stenosis. No evidence of pulmonary hypertension. David Pressley M.D. (Electronically Signed) Final Date: 03 December 2017 22:05 MEASUREMENTS (Male / Female) Normal Values 2D ECHO LV Diastolic Diameter PLAX 3.5 cm 4.2 - 5.9 / 3.9 - 5.3 cm LV Systolic Diameter PLAX 1.9 cm 2.1 - 4.0 cm LV Fractional Shortening PLAX 45.7 % 25 - 46 % LV Ejection Fraction 2D Teich 78.0 % IVS Diastolic Thickness 1.3 cm LVPW Diastolic Thickness 1.2 cm LV Relative Wall Thickness 0.7 RV Internal Dim ED PLAX 3.6 cm 1.9 - 3.8 cm LVOT Diameter 1.8 cm Aortic Root Diameter 2.9 cm LA Systolic Diameter LX 3.4 cm 3.0 - 4.0 / 2.7 - 3.8 cm LA Volume 47.0 cm 18 - 58 / 22 - 52 cm Ascending Aorta Diameter 2.8 cm DOPPLER AV Peak Velocity 144.0 cm/s AV Peak Gradient 8.3 mmHg AV Mean Velocity 98.3 cm/s AV Mean Gradient 4.0 mmHg AV Velocity Time Integral 29.4 cm LVOT Peak Velocity 111.0 cm/s LVOT Peak Gradient 4.9 mmHg LVOT Mean Velocity 78.3 cm/s LVOT Mean Gradient 3.0 mmHg LVOT Velocity Time Integral 24.8 cm LVOT Stroke Volume 63.1 cm AV Area Cont Eq vti 2.1 cm AV Area Cont Eq pk 2.0 cm MV Peak Velocity 86.3 cm/s MV Peak Gradient 3.0 mmHg MV Mean Velocity 51.5 cm/s MV Mean Gradient 1.0 mmHg Mitral E Point Velocity 77.5 cm/s Mitral A Point Velocity 83.4 cm/s Mitral E to A Ratio 0.9 MV PHT Velocity 89.9 cm/s MV Deceleration [place] 407.0 cm/s MV Pressure Half Time 66.3 ms MV Area PHT 3.3 cm MV Deceleration Time 222.0 ms TR Peak Velocity 220.0 cm/s TR Peak Gradient 19.4 mmHg Right Atrial Pressure 5.0 mmHg Pulmonary Artery Systolic Pressure 24.4 mmHg Right Ventricular Systolic Pressure 24.4 mmHg PV Peak Velocity 93.7 cm/s PV Peak Gradient 3.5 mmHg PV Mean Velocity 68.9 cm/s PV Mean Gradient 2.0 mmHg PV Velocity Time Integral 21.2 cm LV E' Lateral Velocity 11.0 cm/s Mitral E to LV E' Lateral Ratio 7.0 LV E' Septal Velocity 5.6 cm/s Mitral E to LV E' Septal Ratio 13.9
[2017-12-03 23:23] VITALS: BP 120/60
[2017-12-03 23:51] LABS: PTT 101 SEC (25-37)
[2017-12-04 06:16] VITALS: BP 126/60
--- NOTE | 2017-12-04 07:31 | PN- Housestaff ---
Jong Martinez 12/04/17 0730: Subjective Follow-up For: Syncope, A. fib, a flutter Tele-Events Since Last Visit: Sinus bradycardia 54-59, converted to a flutter and back to sinus bradycardia several times overnight Subjective: Patient was seen and examined lying comfortably in bed. Patient was in no acute distress. Patient had no complaints overnight. Patient denies dizziness, chest pain, shortness of breath, diaphoresis, nausea, vomiting, trouble sleeping. Telemetry recordings showed patient converted to A-flutter and back to sinus bradycardia (54-59) several times overnight. Review of Systems Constitutional: Reports: see HPI. Objective Last 24 Hrs of Vital Signs/I&O Vital Signs Date Time Temp Pulse Resp B/P B/P Pulse O2 O2 Flow FiO2 Mean Ox Delivery Rate 12/04 09 110 122/62 12/04 0800 94 Room Air 12/04 0616 98.3 59 18 126/60 94 Room Air 12/03 2323 98.5 65 18 120/60 96 12/03 1410 98.3 61 61 137/64 93 Room Air 12/03 1302 96.9 68 18 128/65 97 Intake & Output 12/04 1600 12/04 0800 12/04 0000 Intake Total 234.4 144.8 Output Total Balance 234.4 144.8 Intake, IV 134.4 44.8 Intake, Oral 100 100 Physical Exam General Appearance: Alert, Oriented X3, Cooperative, No Acute Distress Skin Temp/Moisture Exam: Warm/Dry Sepsis Skin Exam (color): Normal for Ethnicity HEENT: Atraumatic, PERRLA, EOMI Neck: Supple Cardiovascular: Normal S1, Normal S2 Lungs: Clear to Auscultation Abdomen: Soft, No Tenderness Neurological: Normal Speech Extremities: No Edema, Normal Pulses Current Medications: Current Medications Sig/Carl Start time Last Medication Dose Route Stop Time Status Admin Acetaminophen 650 MG Q6P PRN 12/02 1400 AC PO Apixaban 5 MG BID 12/04 09 AC 12/04 PO 911 Atorvastatin Calcium 10 MG DAILY 12/03 09 AC 12/04 PO 09 Finasteride 5 MG DAILY 12/03 09 AC 12/04 PO 911 Heparin Sodium 25,000 UNIT Q24H 12/02 1930 DC 12/03 (Porcine) IV 2031 Sodium Chloride 500 ML Metoprolol Tartrate 25 MG .STK-MED ONE 12/04 0907 DC PO 12/04 0908 Metoprolol Tartrate 12.5 MG BID 12/04 0900 AC 12/04 PO 0912 Oxycodone/ 1 TAB Q6P PRN 12/02 1400 AC Acetaminophen PO Patient Medication 1 ED ONE ONE 12/04 1630 DC Teaching ED 12/04 1631 Last 24 Hrs of Lab/Freddie Results Last 24 Hrs of Labs/Mics: Laboratory Tests 12/04/17 0630: APTT 60 H 12/03/17 2225: APTT 101 *H Assessment/Plan Assessment: Mr. Shields is a 77-year-old male with past medical history of hypertension, hyperlipidemia, no other cardiac history who presented to the ED for syncope 2. 1. Paroxysmal A. fib - Start 12.5 mg Metoprolol for rate control - Continue Eliquis for stroke prevention given CHADS2 Vasc score of 3 as per cardiology 2. Chronic Conditions (BPH, HLD, HTN) - Continue Home Meds Heart healthy diet Full code DVT prophylaxis Problem List: 1. Atrial flutter 2. A-fib Pain Ratin Pain Location: N/A Pain Goal: Remain pain free Pain Plan: Pain pathway Tomorrow's Labs & Rationales: N/A Mauricio BANEGAS,Dorita 12/04/17 1151: Attending MD Review Statement Attending Statement Attending MD Statement: examined this patient, discuss w/resident/PA/POLE FRAMER MACHINE, agreed w/resident/PA/POLE FRAMER MACHINE, reviewed EMR data (avail), discussed with nursing, discussed with case mgmt, amended to note Attending Assessment/Plan: Patient seen and examined. Resting comfortably and not in any acute distress. No issues overnight. He remains in atrial fibrillation. For the most part he is with controlled ventricular response will however had rapid ventricular response early on today. In view of this he was started on metoprolol 12.5 mg orally. Heart rate did improve. He did have another episode of tachycardia when ambulated to the bathroom. Heart rate however is currently in the low 50s. In view of this would recommend maintaining the current dose of metoprolol and monitor patient overnight to ensure that he does not develop any episodes of severe bradycardia that will warrant placement of a permanent pacemaker. Anticoagulant therapy has been switched to Eliquis.
[2017-12-04 08:14] LABS: PTT 60 SEC (25-37)
[2017-12-04] MEDS ORDERED: METOPROLOL TART25 M1 PO (10:25)
[2017-12-04] MEDS ORDERED: ELIQUIS5 M1 PO (10:27)
--- NOTE | 2017-12-04 11:12 | PN- Cardiology ---
Subjective Subjective: Patient feels well. He denies chest pain shortness of breath or palpitations. He is anxious to be discharged. Review of Systems: Eyes no blurred or double vision Ears no deafness or ringing Nose and throat no recurrent sinusitis Lungs per history of present illness Heart per history of present illness Abdomen no nausea vomiting Musculoskeletal occasional muscle and joint pains Psych no anxiety or depression Neuro without recurrent headache or seizures Endocrine no heat or cold intolerance Objective Vital Signs and I&Os Vital Signs Date Time Temp Pulse Resp B/P B/P Pulse O2 O2 Flow FiO2 Mean Ox Delivery Rate 12/04 0912 110 122/62 12/04 0800 94 Room Air 12/04 0616 98.3 59 18 126/60 94 Room Air 12/03 2323 98.5 65 18 120/60 96 12/03 1410 98.3 61 61 137/64 93 Room Air 12/03 1302 96.9 68 18 128/65 97 Intake & Output 12/04 1600 12/04 0800 12/04 0000 12/03 1600 12/03 0800 12/03 0000 Intake Total 234.4 144.8 176 340 Output Total Balance 234.4 144.8 176 340 Intake, IV 134.4 44.8 176 Intake, Oral 100 100 340 Patient 154 lb Weight Weight Reported by Patient Measurement Method Physical Exam: Patient is a well-developed well-nourished male appearing in no acute distress HEENT is unremarkable Neck is supple there is no JVD Lungs are clear Heart irregular rhythm S1 and S2 are normal no murmurs gallops or rubs Abdomen bowel sounds positive Extremities without edema Neuro without focal deficits Psych alert and oriented Lymph no adenopathy Current Medications: Current Medications Sig/Carl Start time Last Medication Dose Route Stop Time Status Admin Acetaminophen 650 MG Q6P PRN 12/02 1400 AC PO Apixaban 5 MG BID 12/04 899 AC 12/04 PO 09 Atorvastatin Calcium 10 MG DAILY 12/03 09 AC 12/04 PO 09 Finasteride 5 MG DAILY 12/03 899 AC 12/04 PO 09 Heparin Sodium 25,000 UNIT Q24H 12/02 1930 DC 12/03 (Porcine) IV 2031 Sodium Chloride 500 ML Magnesium Oxide 400 MG ONE ONE 12/03 1515 DC 12/03 PO 12/03 1516 1633 Metoprolol Tartrate 12.5 MG BID 12/04 899 AC 12/04 PO 0912 Oxycodone/ 1 TAB Q6P PRN 12/02 1400 AC Acetaminophen PO Results Last 48 Hrs of Labs/Mics: Laboratory Tests 12/04/17 0630: APTT 60 H 12/03/17 2225: APTT 101 *H 12/03/17 1050: APTT 90 H 12/03/17 0611: Anion Gap 7, Estimated GFR > 60, BUN/Creatinine Ratio 25.7 H, Magnesium 1.9, TSH 0.812, Free T4 1.22, CBC w Diff NO MAN DIFF REQ, RBC 4.45 L, MCV 89.1, MCH 30.7, MCHC 34.5, RDW 14.1, MPV 8.1, Gran % 66.9, Lymphocytes % 22.3, Monocytes % 6.5, Eosinophils % 3.9, Basophils % 0.4, Absolute Granulocytes 6.1, Absolute Lymphocytes 2.0, Absolute Monocytes 0.6, Absolute Eosinophils 0.4, Absolute Basophils 0 12/03/17 0344: APTT 96 H 12/02/17 2112: Troponin I < 0.01 12/02/17 1605: Troponin I < 0.01 Telemetry personally reviewed paroxysmal atrial fibrillation with intermittent rapid ventricular response Recent Imaging Studies: Echocardiogram CONCLUSIONS No obvious regional wall motion abnormalities. Left ventricular wall thickness mildly increased. Left ventricular cavity size normal. Left ventricular ejection fraction is estimated at > 55 %. Normal right ventricular size and function. Mild left atrial dilatation. Thickened aortic valve without stenosis. No evidence of pulmonary hypertension. David Pressley M.D. Assessment/Plan Assessment/Plan 1. Syncope most likely tachycardia induced 2. Paroxysmal atrial fibrillation/flutter with normal LV function 3. Hypertension, well controlled 4. Hyperlipidemia Recommendations 1. I agree with initiating metoprolol for rate control. Titrate as required. 2. Continue Eliquis for stroke prevention given his CHADS2 Vasc score of 3 3. Continue telemetry Continue telemetry? Yes
[2017-12-04 14:24] VITALS: BP 120/60
[2017-12-04 22:07] VITALS: BP 122/80
[2017-12-05 06:40] VITALS: BP 110/60
[2017-12-05 08:24] VITALS: BP 110/60
--- NOTE | 2017-12-05 09:03 | PN- Housestaff ---
Jong Martinez 12/05/17 0903: Subjective Follow-up For: Syncope possiblly 2/2 Afib/Aflutter Tele-Events Since Last Visit: SB 53 to SR 65. Atrial flutter Subjective: Patient sitting comfortably in bed. No overnight events. Patient has no complaints. Patient says since syncopial episode prior to admission, he has been feeling much better. Review of Systems Constitutional: Reports: see HPI. Objective Last 24 Hrs of Vital Signs/I&O Vital Signs Date Time Temp Pulse Resp B/P B/P Pulse O2 O2 Flow FiO2 Mean Ox Delivery Rate 12/05 0824 64 110/60 12/05 0640 97.8 52 18 110/60 96 Room Air Intake & Output 12/05 1600 12/05 0800 12/05 0000 Intake Total 120 340 Output Total Balance 120 340 Intake, Oral 120 340 Patient 147 lb Weight Weight Bed scale Measurement Method Physical Exam General Appearance: Oriented X3, Cooperative, No Acute Distress, Mild Distress Skin Temp/Moisture Exam: Warm/Dry Sepsis Skin Exam (color): Normal for Ethnicity HEENT: Atraumatic, PERRLA, EOMI Neck: Supple Cardiovascular: Normal S1, Normal S2 Lungs: Clear to Auscultation Abdomen: Soft, No Tenderness Neurological: Normal Gait, Normal Speech, Strength at 5/5 X4 Ext Extremities: No Edema, Normal Pulses Assessment/Plan Assessment: Mr. Shields is a 77-year-old male with past medical history of hypertension, hyperlipidemia, no other cardiac history who presented to the ED for syncope 2. Patient waiting for discharge upon completion and results of stress test. 1. Paroxysmal Atrial fibrillation/flutter: Pt is now hemodynamically stable and asymptomatic. - Continue 12.5 mg Metoprolol for rate control - Continue Eliquis 5m BID for stroke prevention - Follow up cardiology wihtin 1 week outpatient 2. Chronic Conditions (BPH, HLD, HTN) - Continue Home Meds Heart healthy diet Full code DVT prophylaxis Problem List: 1. A-fib 2. Atrial flutter 3. Syncope Pain Ratin Pain Location: None Pain Goal: Remain pain free Pain Plan: Pain Pathway Tomorrow's Labs & Rationales: None Dorita Martínez MD 12/05/17 1103: Attending MD Review Statement Attending Statement Attending MD Statement: examined this patient, discuss w/resident/PA/STUDENT MINISTRIES DIRECTOR, agreed w/resident/PA/STUDENT MINISTRIES DIRECTOR, reviewed EMR data (avail), discussed with nursing, discussed with case mgmt, amended to note Attending Assessment/Plan: Patient seen and examined. Resting comfortably not in any acute distress. Overnight patient has been adequately controlled with no episodes of significant bradycardia. He has not had any episodes of sustained tachycardia either. His blood pressure is stable. He will be discharged home on metoprolol 12.5 mg twice daily and anticoagulation therapy with Eliquis. He is to follow-up with his primary care provider and the cardiology service as an outpatient.
--- NOTE | 2017-12-05 10:41 | Discharge Summary ---
Hospital Course Allergies: Coded Allergies: NO KNOWN ALLERGIES (05/24/16) Disposition Summary Disposition Principal Diagnosis: Syncope. Atrial fibrillation. Additional Diagnosis: Hypertension. Dyslipidemia. Discharge Instructions Medications at Discharge Discharge Medications: Continue taking these medications: Amlodipine Besylate (Norvasc) 5 MG TABLET 1 Tablet ORAL DAILY Comments: DID NOT ADMINISTER IN HOSPITAL Atorvastatin Calcium (Atorvastatin Calcium) 10 MG TABLET 1 Tablet ORAL DAILY Comments: Last Taken: 12/04/17 Time: 9:00 AM Finasteride (Finasteride) 5 MG TABLET 1 Tablet ORAL DAILY Comments: Last Taken: 12/04/17 Time: 9:00 AM Ubidecarenone (Co Q-10) (Unknown Strength) CAPSULE Unknown Dose ORAL DAILY Comments: DID NOT ADMINISTER IN HOSPITAL Hydrochlorothiazide (Hydrochlorothiazide) 25 MG TABLET 1 Tablet ORAL DAILY Qty = 90 Comments: DID NOT ADMINISTER IN HOSPITAL Cholecalciferol (Vitamin D3) (Vitamin D3) 1,000 UNIT CAPSULE 1 Capsule ORAL DAILY Comments: DID NOT ADMINISTER IN HOSPITAL Start taking the following new medications: Metoprolol Tartrate (Metoprolol Tartrate) 25 MG TABLET 12.5 Milligram ORAL TWICE DAILY Qty = 60 No Refills Comments: Last Taken: 12/04/17 Time: 9:00 AM Apixaban (Eliquis) 5 MG TABLET 5 Milligram ORAL TWICE DAILY Qty = 60 No Refills Comments: Last Taken: 12/04/17 Time: 9:00 AM Attending MD Review Statement Documenting Attending: Dorita Martínez MD Other Findings: Medically stable to be discharged home.
--- NOTE | 2017-12-05 11:46 | PN- Cardiology ---
Subjective Subjective: Patient is resting comfortably without complaint today. Objective Vital Signs and I&Os Vital Signs Date Time Temp Pulse Resp B/P B/P Pulse O2 O2 Flow FiO2 Mean Ox Delivery Rate 12/05 08 64 110/60 12/05 0640 97.8 52 18 110/60 96 Room Air 12/04 2207 98.2 52 18 122/80 96 Room Air 12/04 2154 63 136/70 12/04 1424 98.2 57 18 120/60 97 Room Air Intake & Output 12/05 1600 12/05 0000 12/04 1600 12/04 0000 Intake Total 120 340 500 234.4 144.8 Output Total Balance 120 340 500 234.4 144.8 Intake, IV 134.4 44.8 Intake, Oral 120 340 500 100 100 Patient 147 lb Weight Weight Bed scale Measurement Method Physical Exam: General: no apparent distress. Alert. Eyes: No obvious scleral icterus. HEENT: No jugular venous distention or abnormal jugular venous pulsations. Cardiovascular: Normal intensity S1/S2. PMI not grossly displaced. Respiratory: Lungs clear to auscultation bilaterally. Abdomen: Soft, nontender with no guarding or rebound tenderness. Musculoskeletal: No clubbing or cyanosis noted Skin: warm Neurologic: No gross focal deficits noted. Lymph: No gross lymphadenopathy. Current Medications: Current Medications Sig/Carl Start time Last Medication Dose Route Stop Time Status Admin Acetaminophen 650 MG Q6P PRN 12/02 1400 AC PO Apixaban 5 MG BID 12/04 899 AC 12/05 PO 0824 Atorvastatin Calcium 10 MG DAILY 12/03 899 AC 12/05 PO 0824 Finasteride 5 MG DAILY 12/03 899 AC 12/05 PO 0824 Metoprolol Tartrate 12.5 MG BID 12/04 899 AC 12/05 PO 0824 Oxycodone/ 1 TAB Q6P PRN 12/02 1400 AC Acetaminophen PO Patient Medication 1 ED ONE ONE 12/04 1630 DC Teaching ED 12/04 1631 Results Last 48 Hrs of Labs/Mics: Laboratory Tests 12/04/17 0630: APTT 60 H 12/03/17 2225: APTT 101 *H 12/03/17 1050: APTT 90 H 12/03/17 0611: Anion Gap 7, Estimated GFR > 60, BUN/Creatinine Ratio 25.7 H, Magnesium 1.9, TSH 0.812, Free T4 1.22, CBC w Diff NO MAN DIFF REQ, RBC 4.45 L, MCV 89.1, MCH 30.7, MCHC 34.5, RDW 14.1, MPV 8.1, Gran % 66.9, Lymphocytes % 22.3, Monocytes % 6.5, Eosinophils % 3.9, Basophils % 0.4, Absolute Granulocytes 6.1, Absolute Lymphocytes 2.0, Absolute Monocytes 0.6, Absolute Eosinophils 0.4, Absolute Basophils 0 12/03/17 0344: APTT 96 H 12/02/17 2112: Troponin I < 0.01 12/02/17 1605: Troponin I < 0.01 Laboratory Tests 12/04/17 0630: APTT 60 H 12/03/17 2225: APTT 101 *H Recent Imaging Studies: Telemetry tracings are personally reviewed and shows sinus rhythm Assessment/Plan Assessment/Plan 1. Syncope most likely tachycardia induced 2. Paroxysmal atrial fibrillation/flutter with normal LV function; back in sinus rhythm 3. Hypertension, well controlled 4. Hyperlipidemia The patient remains in sinus rhythm. He is hemodynamically stable and asymptomatic. Continue current regimen including twice daily Eliquis. He should follow-up in our office within 1 week of discharge; he may be a candidate for atrial fibrillation ablation in the future. Donald Pressley MD [facility] Continue telemetry? No
[2017-12-05] MEDS ORDERED: METOPROLOL TART25 M1 PO (13:10)
[2017-12-05] MEDS ORDERED: ELIQUIS5 M1 PO (13:10)
== END 2017-12-05 12:55 | DRG 310 ==
LOC: DELPENDDIS → ERH 09:43 → 1NO 11:17 → ERHI 11:17 → EDBEDREQ 21:13 → ERHI 12-03 07:27 → ENRESERV 12-03 12:34 → ENTRNSPT 12-03 13:33 → EDTRNSPTSTS 12-03 13:37 → CMPTRNSPT 12-03 13:53 → 1NO 12-03 14:02 → ENPENDDIS 12-04 10:39 → ENTRNSPT 12-05 12:53 → 1NO 12-05 12:55 → EDTRNSPTSTS 12-05 13:01 → EDTRNSPT 12-05 13:01 → CMPTRNSPT 12-05 13:08
PROVIDERS: Emergency Medicine; Internal Medicine; Student in an Organized Health Care Education/Training Program
DX: I48.92 Unspecified atrial flutter (principal); I10 Essential (primary) hypertension; E78.5 Hyperlipidemia, unspecified; N40.0 Benign prostatic hyperplasia without lower urinary tract symptoms; R00.0 Tachycardia, unspecified; Z85.89 Personal history of malignant neoplasm of other organs and systems; W18.30XA Fall on same level, unspecified, initial encounter; Y92.010 Kitchen of single-family (private) house as the place of occurrence of the external cause; R00.8 Other abnormalities of heart beat; I48.0 Paroxysmal atrial fibrillation
CPT/HCPCS: 1NSP; ERO; 36592; 82436; 93005; 93010; 93306; J1644; J1650